=== PATIENT | female | born 1940 | race Caucasian/White ===

== ENCOUNTER → 2024-11-07 | Outpatient (CLI) | payer MEDICARE, MEDICAID, SELFPAY | END | disposition home or self-care (01) | PROVIDERS: Visit Provider Student in an Organized Health Care Education/Training Program | DX: T24.212A Burn of second degree of left thigh, initial encounter (principal); T21.22XA Burn of second degree of abdominal wall, initial encounter; D69.6 Thrombocytopenia, unspecified; J45.909 Unspecified asthma, uncomplicated; M06.80 Other specified rheumatoid arthritis, unspecified site; Z96.653 Presence of artificial knee joint, bilateral; Z86.73 Personal history of transient ischemic attack (TIA), and cerebral infarction without residual deficits; R53.1 Weakness | CPT/HCPCS: 97597; 99213; A9270; G0463 ==

== ENCOUNTER → 2024-11-14 | Outpatient (CLI) | payer MEDICARE, MEDICAID, SELFPAY ==
[2024-11-14 14:25] LABS: Basophils % (Auto) 1 % (0-2.5); Eosinophils # (Auto) 0.4 Thou/mm3 (0.0-0.5); Eosinophils % (Auto) 8 % (0-10); Hematocrit 32.5 % (36.0-46.0); Hemoglobin 10.5 g/dL (12.0-16.0); Immature Granulocytes % (Auto) 0 % (0-0); Immature Granulocytes Auto 0.01 Thou/mm3 (0.00-0.00); Lymphocytes # (Auto) 1.3 Thou/mm3 (1.0-4.8); Lymphocytes % (Auto) 28 % (10-50); Mean Corpuscular HGB Conc 32.3 g/dl (31.0-37.0); Mean Corpuscular Hemoglobin 31.3 pg (25.0-35.0); Mean Corpuscular Volume 97 fL (80-100); Monocytes # (Auto) 0.5 Thou/mm3 (0.0-0.8); Monocytes % (Auto) 12 % (0-12); Neutrophils # (Auto) 2.4 Thou/mm3 (1.8-7.7); Neutrophils % (Auto) 52 % (37-80); Nucleated Red Blood Cell % 0 /100 WBC (0); Platelet Count 267 Thou/mm3 (140-440); RDW Standard Deviation 55.4 fL (36.4-46.3); Red Blood Count 3.36 Miln/mm3 (4.00-5.20); White Blood Count 4.7 Thou/mm3 (3.6-11.0)
[2024-11-14 14:38] LABS: Parathyroid Hormone Intact 36.1 pg/ml (18.5-88.0)
[2024-11-14 14:47] LABS: Vitamin D 25 Hydroxy Total 33.3 ng/mL (7.3-40.2)
[2024-11-14 14:55] LABS: Glucose Estimated Average 105 mg/dL (80-131); Hemoglobin A1C 5.3 % Hgb (4.8-6.0)
[2024-11-14 15:02] LABS: Alanine Aminotransferase 19 U/L (10-49); Albumin, Serum 4.3 gm/dL (3.4-4.8); Albumin/Globulin Ratio 1.7 (1.2-2.2); Alkaline Phosphatase 80 U/L (46-116); Anion Gap 6 (7-16); Aspartate Amino Transferase 25 U/L (0-34); BUN/Creatinine Ratio 19 Ratio (12-20); Bilirubin,Total 0.5 mg/dL (0.3-1.2); Blood Urea Nitrogen 15 mg/dL (9-23); C-Reactive Protein < 0.5 mg/dL (0.0-0.9); Calcium 9.3 mg/dL (8.3-10.6); Calcium (Corrected) 9.3 mg/dL (8.5-10.1); Carbon Dioxide 29.5 mMol/L (20.0-31.0); Chloride 107 mMol/L (98-107); Creatinine (Component) 0.8 mg/dL (0.6-1.3); Globulin 2.5 gm/dL (2.3-3.5); Glucose 102 mg/dL (74-106); Osmolality,Calculated 283 (275-295); Phosphorous 3.5 mg/dL (2.4-5.1); Potassium 4.8 mMol/L (3.4-5.1); Sodium 142 mMol/L (136-145); Total Protein 6.8 gm/dL (5.7-8.2); eGFR > 60 See Note
[2024-11-14 15:36] LABS: Sed Rate (ESR) 29 mm/hr (0-30)
[2024-11-20 03:02] LABS: Albumin 3.7 g/dL (3.8-4.8); Alpha-1-Globulin 0.3 g/dL (0.2-0.3); Alpha-2-Globulin 0.8 g/dL (0.5-0.9); Beta-1-Globulin 0.4 g/dL (0.4-0.6); Beta-2-globulin 0.4 g/dL (0.2-0.5); Gamma Globulin 0.9 g/dL (0.8-1.7)
[2024-11-20 06:34] LABS: Protein, total, serum 6.6 g/dL (6.1-8.1)
== END | disposition home or self-care (01) ==
PROVIDERS: PCP Family Medicine; Visit Provider Student in an Organized Health Care Education/Training Program
DX: S31.104A Unspecified open wound of abdominal wall, left lower quadrant without penetration into peritoneal cavity, initial encounter (principal); C50.912 Malignant neoplasm of unspecified site of left female breast; D50.8 Other iron deficiency anemias; D50.9 Iron deficiency anemia, unspecified; E55.9 Vitamin D deficiency, unspecified; E87.5 Hyperkalemia; F34.1 Dysthymic disorder; G60.9 Hereditary and idiopathic neuropathy, unspecified; I10 Essential (primary) hypertension; J45.909 Unspecified asthma, uncomplicated; K21.9 Gastro-esophageal reflux disease without esophagitis; K44.9 Diaphragmatic hernia without obstruction or gangrene; M05.79 Rheumatoid arthritis with rheumatoid factor of multiple sites without organ or systems involvement; M17.0 Bilateral primary osteoarthritis of knee; M54.89 Other dorsalgia; M79.7 Fibromyalgia; M81.0 Age-related osteoporosis without current pathological fracture; M81.8 Other osteoporosis without current pathological fracture; R21 Rash and other nonspecific skin eruption; S22.000A Wedge compression fracture of unspecified thoracic vertebra, initial encounter for closed fracture; Z13.820 Encounter for screening for osteoporosis; Z78.0 Asymptomatic menopausal state; Z79.899 Other long term (current) drug therapy; Z86.73 Personal history of transient ischemic attack (TIA), and cerebral infarction without residual deficits; Z87.09 Personal history of other diseases of the respiratory system; Z92.25 Personal history of immunosuppression therapy
CPT/HCPCS: 36415; 80053; 82306; 83036; 83970; 84100; 84155; 84165; 85025; 85652; 86140

== ENCOUNTER → 2024-11-19 | Outpatient (CLI) | payer MEDICARE, MEDICAID, SELFPAY ==
[2024-11-19 10:43] LABS: Quantiferon-TB* See Sep Rpt
== END | disposition home or self-care (01) ==
LOC: COPL 10:16
PROVIDERS: PCP Family Medicine
DX: C50.912 Malignant neoplasm of unspecified site of left female breast (principal); D50.8 Other iron deficiency anemias; E55.9 Vitamin D deficiency, unspecified; E87.5 Hyperkalemia; F34.1 Dysthymic disorder; G60.9 Hereditary and idiopathic neuropathy, unspecified; I10 Essential (primary) hypertension; J45.909 Unspecified asthma, uncomplicated; K21.9 Gastro-esophageal reflux disease without esophagitis; M05.79 Rheumatoid arthritis with rheumatoid factor of multiple sites without organ or systems involvement; M17.0 Bilateral primary osteoarthritis of knee; M54.89 Other dorsalgia; M79.7 Fibromyalgia; R21 Rash and other nonspecific skin eruption; K44.9 Diaphragmatic hernia without obstruction or gangrene; S22.000A Wedge compression fracture of unspecified thoracic vertebra, initial encounter for closed fracture; X58.XXXA Exposure to other specified factors, initial encounter; Z13.820 Encounter for screening for osteoporosis; Z78.0 Asymptomatic menopausal state; Z79.899 Other long term (current) drug therapy; Z86.73 Personal history of transient ischemic attack (TIA), and cerebral infarction without residual deficits; Z87.09 Personal history of other diseases of the respiratory system; Z92.25 Personal history of immunosuppression therapy
CPT/HCPCS: 85652; 86480

== ENCOUNTER → 2024-11-21 | Outpatient (CLI) | payer MEDICARE, MEDICAID, SELFPAY | END | disposition home or self-care (01) | LOC: SWHD 14:40 | PROVIDERS: PCP Family Medicine; Referring Provider Family Medicine; Visit Provider Student in an Organized Health Care Education/Training Program | DX: T21.22XA Burn of second degree of abdominal wall, initial encounter (principal); T24.212A Burn of second degree of left thigh, initial encounter; J45.909 Unspecified asthma, uncomplicated; D69.6 Thrombocytopenia, unspecified; M06.80 Other specified rheumatoid arthritis, unspecified site; Z96.653 Presence of artificial knee joint, bilateral; R53.1 Weakness | CPT/HCPCS: 99213; A9270; G0463 ==

== ENCOUNTER → 2024-11-26 | Outpatient (CLI) | payer MEDICARE, MEDICAID, SELFPAY | END | disposition home or self-care (01) | LOC: SWHD 15:02 | PROVIDERS: PCP Family Medicine; Referring Provider Family Medicine; Visit Provider Student in an Organized Health Care Education/Training Program | DX: T21.22XA Burn of second degree of abdominal wall, initial encounter (principal); J45.909 Unspecified asthma, uncomplicated; D69.6 Thrombocytopenia, unspecified; M06.80 Other specified rheumatoid arthritis, unspecified site; Z96.653 Presence of artificial knee joint, bilateral; R53.1 Weakness | CPT/HCPCS: 17250; A9270 ==

== ENCOUNTER → 2024-12-03 | Outpatient (CLI) | payer MEDICARE, MEDICAID, SELFPAY | END | disposition home or self-care (01) | LOC: SWHD 15:18 | PROVIDERS: PCP Family Medicine; Referring Provider Family Medicine; Visit Provider Student in an Organized Health Care Education/Training Program | DX: T21.22XA Burn of second degree of abdominal wall, initial encounter (principal); J45.909 Unspecified asthma, uncomplicated; D69.6 Thrombocytopenia, unspecified; M06.80 Other specified rheumatoid arthritis, unspecified site; Z96.653 Presence of artificial knee joint, bilateral; R53.1 Weakness | CPT/HCPCS: 17250; A9270 ==

== ENCOUNTER → 2024-12-17 | Outpatient (CLI) | payer MEDICARE, MEDICAID, SELFPAY | END | disposition home or self-care (01) | LOC: SWHD 14:41 | PROVIDERS: PCP Family Medicine; Referring Provider Family Medicine; Visit Provider Student in an Organized Health Care Education/Training Program | DX: T21.22XA Burn of second degree of abdominal wall, initial encounter (principal); J45.909 Unspecified asthma, uncomplicated; D69.6 Thrombocytopenia, unspecified; M06.80 Other specified rheumatoid arthritis, unspecified site; Z96.653 Presence of artificial knee joint, bilateral; R53.1 Weakness | CPT/HCPCS: 99212; G0463 ==

== ENCOUNTER → 2025-02-12 | Outpatient (CLI) | payer MEDICARE, MEDICAID, SELFPAY ==
--- NOTE | 2025-02-12 15:00 | XR_ITS ---
Examination: CT lumbar spine, without contrast. 2-D sagittal reconstructions. 2-D coronal reconstructions. 3-D reconstructions. Date and time of exam:February 12, 2025 1432 hours INDICATIONS: Low back pain 4 years CTDI: vol (mGy):56.1 DLP: (mGycm):1497 Technique: Multiple 1.25 mm axial sections of the lumbar spine have been obtained. 2-D sagittal and coronal reconstructions have been obtained. 3-D reconstructions have been obtained. Low dose protocols were performed. One or more of the following dose reduction techniques were used; automated exposure control, adjustment of the mA and/or KV according to patient size, use of iterative reconstruction technique. Findings: Upper lumbar levoscoliosis 40 degrees Severe osteopenia Chronic osteoporotic compression T12 No acute lumbar fracture Advanced disc narrowing L1-L2, L2-L3, L4-L5 Grade 1 anterolisthesis L5 on S1 L5-S1 4 mm central lumbar disc bulge extending to the left foraminal region with moderate left L5 ganglionic compression L4-L5 severe left neural foraminal stenosis with moderate left L4 ganglionic compression L3-L4 5 mm central lumbar disc bulge L2-L3 no disc protrusion L1-L2 no disc protrusion IMPRESSION: Severe upper lumbar levoscoliosis Severe osteopenia Advanced degenerative disc disease L1-L2, L2-L3, L4-L5 L5-S1 4 mm central left foraminal disc bulge producing moderate left L5 ganglionic compression L4-L5 severe left neural foraminal stenosis moderate left L4 ganglionic compression L3-L4 5 mm central lumbar disc bulge
== END | disposition home or self-care (01) ==
LOC: CCTX 14:16
PROVIDERS: PCP Internal Medicine; Referring Provider Student in an Organized Health Care Education/Training Program; Visit Provider Student in an Organized Health Care Education/Training Program
DX: M41.86 Other forms of scoliosis, lumbar region (principal); M51.360 Other intervertebral disc degeneration, lumbar region with discogenic back pain only; M48.061 Spinal stenosis, lumbar region without neurogenic claudication; G95.20 Unspecified cord compression
CPT/HCPCS: 72131